=== PATIENT | male | born 1950 | race Caucasian/White ===

== ENCOUNTER 2021-09-06 15:11 | Inpatient (IN) | payer MEDICARE, SELFPAY ==
--- NOTE | ~2021-09-06 | MR_ITS ---
EXAMINATION: MR MRCP wo/w con/w 3D wo ind DATE: 09/07/2021 08:40 INDICATION: Acute pancreatitis. Right upper quadrant abdominal pain. TECHNIQUE: Magnetic resonance imaging (MRI) of the abdomen was performed without and with 15 mL Multi Marisabel intravenous contrast. Sequences included coronal T2-weighted FS FSE, coronal T2-weighted FSE, a xial T1-weighted LAVA, coronal FS FIESTA, axial dual-echo T1-weighted SPGR, coronal lava-FLEX, sagitt al T2-weighted FSE, axial T2-weighted FSE, and axial DWI. Thick-slab T2-weighted FSE images were obta ined for magnetic resonance cholangiopancreatography (MRCP). Maximum intensity projection 3-D reconst ructions of the volumetric data were created by the technologist. Postcontrast sequences included cor onal LAVA-flex and time course of axial T1-weighted LAVA. COMPARISON: CT abdomen and pelvis 09/06/2021, abdomen ultrasound 09/06/2021 FINDINGS: ABDOMEN MRI: There is a small right pleural effusion. The liver is normal. The gallbladder is distend ed and contains sludge. Gallbladder wall thickening is noted. There is sludge in the cystic duct that protrudes into the common duct. The spleen is normal. There is edema around the pancreas, consistent with acute interstitial pancreatitis. The adrenal glands and right kidney are normal. There are laurita pelvic cysts in left kidney measuring up to 14 mm. There are no dilated loops of bowel. There is a sm all volume of perihepatic and perisplenic ascites. There are no pathologically enlarged lymph nodes. ABDOMEN MRCP: The common duct is normal in caliber and measures 6 mm. No stone in the distal common b ile duct. IMPRESSION: 1. Acute interstitial pancreatitis. Sludge protrudes into the common duct from the cystic duct, but t here is no stone in the distal common bile duct. 2. Acute cholecystitis. 3. Small volume of ascites. 4. Small right pleural effusion. Reviewed, dictated and finalized at location A. IMPRESSION: 1. Acute interstitial pancreatitis. Sludge protrudes into the common duct from the cystic duct, but there is no stone in the distal common bile duct. 2. Acute cholecystitis. 3. Small volume of ascites. 4. Small right pleural effusion.
--- NOTE | ~2021-09-06 | XR_ITS ---
EXAMINATION: XR ERCP DATE: 09/08/2021 15:37 INDICATION: Acute pancreatitis TECHNIQUE: Two intraoperative fluoroscopic images obtained during endoscopic retrograde cholangiopanc reatography (ERCP) are submitted for review. Total fluoroscopic time was 155.8 seconds. COMPARISON: MRI from yesterday and CT from 09/06/2021 FINDINGS: Fluoroscopic images demonstrate retrograde opacification of a normal caliber common bile du ct. IMPRESSION: 1. Please refer to the ERCP procedure note for additional details. Reviewed, dictated and finalized at location A.
--- NOTE | ~2021-09-06 | CT_ITS ---
EXAMINATION: CT abdomen pelvis w con INDICATION: Epigastric abdominal pain TECHNIQUE: Computed tomographic images of the abdomen and pelvis were obtained after the administrati on of 100 cc of Omnipaque 350 intravenous contrast. The dose-length product (DLP) was 476.87 mGy-cm. Automated exposure control and iterative reconstruction technique were employed. COMPARISON: None available FINDINGS: Minimal dependent atelectasis is present in the lung bases. The heart size is normal. Calci fied coronary artery atherosclerosis is noted. There is a small sliding hiatal hernia. The liver, spl een, pancreas, and adrenal glands are normal. The gallbladder is distended. There is mild intrahepati c biliary dilatation. There is fat stranding near the gallbladder. The kidneys are unremarkable. Ther e is calcified atherosclerosis of the aorta and many of the other arteries. No pathologically enlarge d abdominal or pelvic lymph nodes are identified. There is no free intraperitoneal gas or evidence of bowel obstruction. Colonic diverticulosis is present without evidence of diverticulitis. There is mi ld lumbar spondylosis. IMPRESSION: 1. Findings consistent with acute cholecystitis. Reviewed, dictated and finalized at location A.
--- NOTE | ~2021-09-06 | US_ITS ---
EXAMINATION: US abdomen limited DATE: 09/06/2021 18:20 INDICATION: Abdominal pain TECHNIQUE: Multiple grayscale and Doppler ultrasound images of the abdomen were obtained. COMPARISON: None available FINDINGS: The head and body of the pancreas are normal. The pancreatic tail is obscured by bowel gas. The liver is normal with normal echogenicity and echotexture. No surface nodularity. Normal hepatope mj flow in the main portal vein. The gallbladder is normal with no abnormal wall thickening, pericho lecystic fluid or stones. The normal common bile duct measures 6 mm. There was no sonographic Maynard sign. IMPRESSION: 1. Normal sonographic study of the gallbladder. Reviewed, dictated and finalized at location A.
[2021-09-06 15:43] VITALS: BP 123/80; PULSE 102; RESP 16; TEMP 37.1; O2SAT 97
[2021-09-06 16:05] LABS: Hematocrit 39.8 % (42.0-52.0); Hemoglobin 14.3 g/dL (14.0-18.0); Mean Corpuscular HGB Conc 35.9 g/dl (32-36); Mean Corpuscular Hemoglobin 34.3 pg (26-34); Mean Corpuscular Volume 95.4 fl (80-100); Mean Platelet Volume 8.2 fl (7.4-10.4); Platelet Count Result 165 k/mm3 (150-375); Red Blood Count 4.17 M/mm3 (4.6-6.20); White Blood Count 13.2 K/mm3 (4.5-10.0)
[2021-09-06 16:22] LABS: Alanine Aminotransferase 30 U/L (4-50); Albumin Level 4.3 g/dL (3.5-5.1); Alkaline Phosphatase 100 U/L (38-126); Anion Gap 11 mmol/L (8-16); Aspartate Amino Transferase 63 U/L (17-59); Blood Urea Nitrogen 17 mg/dL (9-20); Calcium 9.8 mg/dL (8.4-10.2); Carbon Dioxide 27 mmol/L (22-30); Chloride 103 mmol/L (98-107); Estimated CRCL calculation 74 ml/min; Estimated Glomerular Filt Rate > 60; Glucose 135 mg/dL (65-110); Lipase 1324 U/L (23-300); Potassium 3.5 mmol/L (3.4-5.0); Sodium 141 mmol/L (137-145)
[2021-09-06 16:40] LABS: Band Neutrophils Percent 7 % (0-6); Lymphocytes Absolute Manual 0.26 K/mm3 (1.1-4.5); Monocytes Absolute Manual 0.79 K/mm3 (0.1-0.90); Monocytes Percent Manual 6 % (3-9); Neutrophils Absolute Manual 12.14 K/mm3 (1.3-6.7); Neutrophils Percent Manual 85 % (46-73); Total Cells Counted 100
[2021-09-06 16:41] LABS: Platelet Estimate Adequate (Adequate)
[2021-09-06 17:14] VITALS: BP 132/67; PULSE 49; RESP 18; TEMP 36.6; O2SAT 99
[2021-09-06 17:25] LABS: Add Urine Microscopic? YES; Appearance Urine Cloudy (Clear); Bacteria Urine Trace /hpf; Bilirubin Urine Negative (Negative); Blood Urine Negative (Negative); Color Urine Yellow (Yellow); Glucose Urine UA Negative (Negative); Ketones Urine Negative (Negative); Leukocyte Esterase Ur Negative LEU/UL (Negative); Mucus Urine Rare /lpf; Nitrate Urine Negative (Negative); Protein Urine Negative (Negative); RBC Urine 0-2 /hpf (0-2); Specific Grav Ur 1.018 (1.001-1.035); Urobilinogen Urine Negative mg/dL (<2.0); WBC Urine 0-3 /hpf
--- NOTE | 2021-09-06 17:34 | ED.GENADULT ---
HPI - General Adult General Chief complaint: Abdominal Pain Stated complaint: abd pain Time Seen by Provider: 09/06/21 17:25 Source: patient Mode of arrival: ambulatory Limitations: no limitations History of Present Illness HPI narrative: The patient is a 70 yo male with a history of prostate cancer, HTN, HLD, presenting for evaluation of abdominal pain. Pain awakened him from sleep early this morning. Pain is in left middle abdomen, severe in nature, rated as 7/10. Pt with associated nausea. He denies fever, chills. No diarrhea or constipation. No chest pain or dyspnea. No recent falls or significant trauma. Patient denies radiation of the pain to the back or flanks. No associated dyspnea, cough. Patient denies recent food indiscretions but patient drinks 3-4 bottles of wine weekly. Patient reports history of anxiety. He denies current chest pain, or back pain. No diaphoresis. No jaw pain or neck pain. Related Data Allergies Allergy/AdvReac Type Severity Reaction Status Date / Time codeine Allergy Mild Rash Verified 09/06/21 17:20 Review of Systems Review of Systems: CONSTITUTIONAL: Denies fever, chills, or sweats. EYES: Denies visual changes, redness, or discharge. ENT: Denies rhinorrhea, congestion, sore throat, or otalgia. CARDIOVASCULAR: Denies current chest pain, palpitations, or edema. RESPIRATORY: Denies cough or dyspnea. GASTROINTESTINAL: Reports abdominal pain, nausea without vomiting GENITOURINARY: Denies dysuria or hematuria. SKIN: Denies rash or itching. MUSCULOSKELETAL: Denies back pain, joint pain, or myalgia. NEUROLOGIC: Denies headache, numbness, or weakness. [facility] Social History Social History (Updated 09/06/21 @ 17:59 by Nell Weinstein MD) Smoking status: Former smoker Alcohol intake: current Alcohol use details: 3-4 bottles of wine weekly Substance use: never Gender identity (if verbalized by the patient): Male Exam Narrative: GENERAL: Awake, alert, conversant HEAD: Normocephalic, atraumatic. EYES: PERRLA and EOMI. ENT: Nares clear, no rhinorrhea or epistaxis. Mucous membranes moist. NECK: Supple. CHEST: No respiratory distress, breathing even and non labored HEART: Regular rate, sinus rhythm ABDOMEN:Non distended, non tender on exam, no epigastric or RUQ tenderness, (-) maynard sign EXTREMITIES: Normal range of motion. No edema. SKIN: Warm, dry, no rash. NEURO:No focal deficits. Alert and oriented x3 Course Vital Signs Vital signs: Vital Signs Temperature 37.1 C 09/06/21 15:43 Pulse Rate 102 H 09/06/21 15:43 Respiratory Rate 16 09/06/21 15:43 Blood Pressure 123/80 09/06/21 15:43 Pulse Oximetry 97 09/06/21 15:43 Temperature 36.6 C 09/06/21 17:14 Pulse Rate 98 09/06/21 20:44 Respiratory Rate 15 09/06/21 20:44 Blood Pressure 142/77 H 09/06/21 20:44 Pulse Oximetry 97 09/06/21 20:44 Medical Decision Making MDM Narrative Medical decision making narrative: Patient presenting for evaluation of abdominal pain. At the time of assessment, ABCs are intact and vital signs are notable for mild tachycardia. Patient has no fever. Not hypotensive. IV access obtained and labs are drawn. Patient was given IV fluids, antiemetic and pain medication. Physical exam does not elicit much tenderness at all. No right upper quadrant tenderness, negative Maynard sign. Laboratory results show hyperbilirubinemia, elevation in AST consistent with the patient's recent alcohol use. Patient with elevation in lipase, consistent with pancreatitis. Right upper quadrant ultrasound was obtained and is negative. Given the patient's pain and history, wanted to ensure no hemorrhagic pancreatitis, pseudocyst, thus CT abdomen/pelvis was obtained and is concerning for acute cholecystitis. Conflicting imaging studies, but patient does not have RUQ abdominal pain on exam, - Maynard sign. Clinically this seems more consistent with alcoholic pancreatitis. Patient will be continued
[2021-09-06 19:16] VITALS: BP 155/66; PULSE 102; RESP 15; O2SAT 98
--- NOTE | 2021-09-06 19:42 | PC.NURSE ---
Pt to CT scan via stretcher.
[2021-09-06 20:44] VITALS: BP 142/77; PULSE 98; RESP 15; O2SAT 97
--- NOTE | 2021-09-06 21:13 | ECG_ITS ---
Measurements Intervals [place] Rate: 103 P: -44 [place]: 180 QRS: -32 QRSD: 100 T: 13 QT: 348 QTc: 458 Interpretive Statements SINUS TACHYCARDIA ATRIAL COUPLET AND ATRIAL PREMATURE COMPLEX LEFT AXIS DEVIATION INCOMPLETE RIGHT BUNDLE BRANCH BLOCK BORDERLINE R WAVE PROGRESSION, ANTERIOR LEADS BORDERLINE T WAVE ABNORMALITY- ANT/INF LEADS BASELINE ARTIFACT- I, II, III, AVR, AVL, AVF, V1-V3 ABNORMAL ECG Electronically Signed On 09-07-2021 6:25:42 CDT by Ashutosh Elena D.O.
[2021-09-06 21:53] LABS: Lactic Acid Reflex 1.6 mmol/L (0.7-2.1)
--- NOTE | 2021-09-06 22:09 | PM.IMHP ---
H&P: HPI History of Present Illness Date/Time: 09/06/21 22:09 Chief Complaint: Abdominal pain Narrative: The patient is a 70 yo male with a history of prostate cancer, HTN, HLD, presents to the ER with upper abdominal pain that awakened him from sleep earlier this morning. The pain is in the right upper quadrant and epigastric area severe in nature 7 to 8/10 in intensity associated with nausea and dry his but no vomiting. He denies any fever or chills no diarrhea or constipation. He never had similar kind of pain in the past. He does endorse alcohol use on a regular basis and particularly drinks wine and he did drink wine earlier that night. In the ED evaluation he was noted to have mild leukocytosis of 13,000 along with elevated lipase at 1:24 p.m. he did have bilirubin elevation at 2 with mild AST of 63 however alkaline phosphatase and ALT was within normal limit. He was evaluated with a right upper quadrant ultrasound which was unremarkable per Radiology review. Abdominal pelvis CT scan was done which showed features of acute cholecystitis. He is admitted for further evaluation and management. Review of Systems Review of Systems: - CONSTITUTIONAL: Denies weight loss, fever and chills. - HEENT: Denies changes in vision and hearing - RESPIRATORY: Denies SOB and cough. - CV: Denies palpitations and CP. - GI: Reports abdominal pain, nausea, denies vomiting and diarrhea. - : Denies dysuria and urinary frequency. - MSK: Denies myalgia and joint pain. - SKIN: Denies rash and pruritus. - NEUROLOGICAL: Denies headache and syncope. - PSYCHIATRIC: Denies recent changes in mood. Denies anxiety and depression. All systems reviewed & are unremarkable except as noted in HPI and below Constitutional: Constitutional: Reports fatigue and Reports weakness Neurologic: Reports weakness Endocrine: Endocrine: Reports fatigue [facility] Social History Social History (Updated 09/06/21 @ 17:59 by Nell Weinstein MD) Smoking status: Former smoker Alcohol intake: current Drinks per week: 21 Alcohol use details: 3-4 bottles of wine weekly Substance use: never Gender identity (if verbalized by the patient): Male Spiritual care concerns: No Meds Home Medications and Allergies Home Medications Medication Instructions Recorded Confirmed Type amlodipine 5 mg PO DAILY 09/06/21 09/06/21 History azelastine 2 spray INTRANASAL DAILY 09/06/21 09/06/21 History fluticasone propionate 2 spray INTRANASAL DAILY 09/06/21 09/06/21 History losartan-hydrochlorothiazide 1 tablet PO DAILY 09/06/21 09/06/21 History metronidazole 1 applic TOPICAL BID 09/06/21 09/06/21 History montelukast 10 mg PO HS 09/06/21 09/06/21 History rosuvastatin 10 mg PO HS 09/06/21 09/06/21 History sertraline 100 mg PO HS 09/06/21 09/06/21 History zolpidem 10 mg PO HS 09/06/21 09/06/21 History Allergies Allergy/AdvReac Type Severity Reaction Status Date / Time codeine Allergy Mild Rash Verified 09/06/21 17:20 Vital Signs Vital Signs - 24 hr 09/06/21 15:43 09/06/21 17:14 09/06/21 19:16 Temperature 98.7 F 97.8 F Pulse Rate 102 H 49 L 102 H Respiratory Rate 16 18 15 Blood Pressure 123/80 132/67 155/66 H Pulse Oximetry 97 99 98 09/06/21 20:44 Temperature Pulse Rate 98 Respiratory Rate 15 Blood Pressure 142/77 H Pulse Oximetry 97 Exam Narrative: GENERAL: Awake, alert, conversant HEAD: Normocephalic, atraumatic. EYES: PERRLA and EOMI. ENT: Nares clear, no rhinorrhea or epistaxis. Mucous membranes moist. NECK: Supple. CHEST: No respiratory distress, breathing even and non labored HEART: Regular rate, sinus rhythm ABDOMEN:Non distended, non tender on exam, no epigastric or RUQ tenderness, (-) murrell sign EXTREMITIES: Normal range of motion. No edema. SKIN: Warm, dry, no rash. NEURO:No focal deficits. Alert and oriented x3 H&P: Results Labs Labs: Short CBC 09/06/21 Range/Units 15:51 WBC 13.2 H (4.5-10.0) K/
--- NOTE | 2021-09-06 22:16 | ADMGEN ---
This patient, Rickey Weiss, was admitted to Medical Room 251-. Patient/family oriented to hospital policies and general routines including ID bracelet, bed and alarms, visiting hours, pain management, procedures, bathroom and other care routines, personal items, smoking policy, room service/diet, and visiting hours. Information on how to activate the Rapid Response Team has been discussed. Patient/Family are encouraged to report perceived risks to care and to ask questions if they do not understand what they are told or what they should do.
[2021-09-06 22:19] VITALS: BP 134/87; PULSE 91; RESP 16; O2SAT 98
[2021-09-06 22:39] VITALS: BP 133/76; PULSE 99; RESP 18; TEMP 37; O2SAT 98
[2021-09-06 22:46] VITALS: BMI 24.7
[2021-09-06] MEDS: SODIUM CHLORIDE 0.9% IV 1,000 ML 125 ML IV CONT (23:07)
[2021-09-06] MEDS: MORPHINE SULFATE (*CRX) 4 MG/ML INJ IV PUSH (23:16)
[2021-09-06] MEDS: ONDANSETRON INJ 4 MG/2 ML VIAL IV PUSH (23:21)
[2021-09-07 04:32] VITALS: BP 122/65; PULSE 87; RESP 16; TEMP 37.1; O2SAT 92
[2021-09-07 05:36] LABS: Basophils Percent Auto 0.3 % (0.2-1.2); Eosinophils Percent Auto 0.1 % (0-4.4); Immature Granulocyte Absolute 0.05 K/mm3 (0.00-0.031); Immature Granulocyte Percent A 0.5 % (0-0.5); Lymphocytes Percent Auto 2.9 % (18.3-44.2); Mean Corpuscular HGB Conc 35.1 g/dl (32-36); Mean Corpuscular Hemoglobin 34.7 pg (26-34); Mean Corpuscular Volume 98.7 fl (80-100); Mean Platelet Volume 8.6 fl (7.4-10.4); Monocytes Absolute Auto 0.9 K/mm3 (0.1-0.6); Monocytes Percent Auto 8.7 % (2.6-8.5); Neutrophils Absolute Auto 9.2 K/mm3 (1.3-6.7); Neutrophils Percent Auto 87.5 % (45.5-73.1); Platelet Count Result 139 k/mm3 (150-375); Red Blood Count 3.75 M/mm3 (4.6-6.20); Red Cell Distribution Width 13.2 % (11.5-14.5); White Blood Count 10.5 K/mm3 (4.5-10.0)
[2021-09-07 05:52] LABS: Albumin Level 3.5 g/dL (3.5-5.1); Alkaline Phosphatase 165 U/L (38-126); Anion Gap 7 mmol/L (8-16); Bilirubin,Total 5.8 mg/dL (0.2-1.3); Blood Urea Nitrogen 17 mg/dL (9-20); Calcium 8.8 mg/dL (8.4-10.2); Carbon Dioxide 27 mmol/L (22-30); Chloride 106 mmol/L (98-107); Estimated CRCL calculation 59 ml/min; Estimated Glomerular Filt Rate > 60; Glucose 130 mg/dL (65-110); Potassium 3.3 mmol/L (3.4-5.0); Sodium 140 mmol/L (137-145)
[2021-09-07 06:09] LABS: Alanine Aminotransferase 828 U/L (4-50); Aspartate Amino Transferase 928 U/L (17-59)
[2021-09-07] MEDS: SODIUM CHLORIDE 0.9% IV 1,000 ML 125 ML IV CONT (06:49)
[2021-09-07 06:50] LABS: Lipase 10962 U/L (23-300)
[2021-09-07] MEDS: FLUTICASONE PROPIONATE 0.05% NA SPR 16 GM BTL (*BKC) 2 SPRAY NASAL (08:46)
[2021-09-07] MEDS: amLODIPine BESYLATE 5 MG TABLET PO (08:46)
[2021-09-07] MEDS: AZELASTINE HCL NASAL 0.1% 137 MCG/SPR 30 ML BTL 2 SPRAY NASAL (08:46)
[2021-09-07] MEDS: POTASSIUM CHLORIDE 20 MEQ TABLET 40 MEQ PO (08:52)
--- NOTE | 2021-09-07 09:34 | PM.CNGS ---
Assessment and Plan Assessment and plan (1) Acute pancreatitis: Code(s): K85.90 - Acute pancreatitis without necrosis or infection, unspecified Status: Acute Assessment and Plan: Presented with acute biliary versus alcoholic pancreatitis. Lipase and LFTs went up this morning. Patient's abdominal pain has improved. MRCP showed biliary sludge protruding through the cystic duct into the common bile duct. GI has been consulted, will await their recommendations. Continue to treat the pancreatitis with IV fluids, analgesics, and bowel rest. His pain is already improving. Since this appears to be more likely acute biliary pancreatitis, he will likely need a cholecystectomy at some point once his pancreatitis has improved. Will allow GI to see and we will continue to follow along to decipher timing of surgery depending on how the patient progresses. Labs are already ordered for tomorrow morning. Thank you for allowing us to see the patient in consultation. (2) Biliary sludge: Code(s): K83.8 - Other specified diseases of biliary tract Status: Acute Assessment and Plan: Sludge noted on the MRCP protruding into the common bile duct from the cystic duct. See plan above. (3) Hypertension: Code(s): I10 - Essential (primary) hypertension Status: Chronic (4) Alcohol abuse: Code(s): F10.10 - Alcohol abuse, uncomplicated Status: Chronic Assessment and Plan: Discussed the importance of limiting alcohol use. (5) History of prostate cancer: Code(s): Z85.46 - Personal history of malignant neoplasm of prostate Status: Inactive Assessment and Plan: Diagnosed in July of 2020 and underwent a radical prostatectomy in December. Recently finished radiation treatment in early July and is on androgen deprivation therapy. Additional Plan I have discussed the patient's case and plan of care with Dr. López. History of Present Illness Consult details Consult date: 09/07/21 Reason for consult: other (Pancreatitis and CT findings suggesting cholecystitis with elevated LFTs) Requesting physician: Nell Weinstein MD Narrative: This is a 70-year-old male with a history of prostate cancer, hypertension, and alcohol abuse, who presented to the emergency department with complaints of upper abdominal pain yesterday. He reports typically drinking about 1 bottle of wine per day, and 2 days ago he had 2 glasses of wine with a cheeseburger and fries for dinner. He went to bed feeling well. Then, around 3:00 a.m. yesterday morning he awoke in his sleep due to severe upper abdominal pain. He reports this pain was radiating across his entire abdomen above his umbilicus. He has never had this pain in the past. No history of pancreatitis or known gallstones. He developed nausea and was dry heaving at home. The pain continued throughout the day, and his daughter urged him to go to the ER for evaluation. A right upper quadrant ultrasound in the ER was normal with no gallstones or common bile duct dilatation. Labs showed a white blood cell count of 13,200, lipase of 1,324, total bilirubin 2, AST 63, ALT 30, and alk-phos 100. CT scan of the abdomen and pelvis was ordered and showed intrahepatic ductal dilatation, gallbladder distention, and some fat stranding near the gallbladder. Pancreas appeared normal. The patient was admitted to the hospitalist service and our service was consulted for the abnormalities of the gallbladder seen on the CT scan. Labs were repeated this morning and his white blood cell count came down to 10,500, but his lipase went up to 10,962 and LFTs went up with a total bilirubin of 5.8, AST 928, ALT 28, and alk-phos 165. An MRCP was ordered this morning, which showed acute interstitial pancreatitis with sludge protruding into the common bile duct from the cystic duct, but no definitive stones in the distal common bile duct. The gallbladder again is noted to be distended w
[2021-09-07 14:00] VITALS: BP 108/62; PULSE 72; RESP 18; TEMP 37.3; O2SAT 97
--- NOTE | 2021-09-07 14:29 | PM.IMPN ---
Progress Note: A&P Assessment and Plan (1) Acute alcoholic pancreatitis: Code(s): K85.20 - Alcohol induced acute pancreatitis without necrosis or infection Status: Suspected (2) Alcohol abuse: Code(s): F10.10 - Alcohol abuse, uncomplicated Status: Chronic (3) Hyperlipidemia: Code(s): E78.5 - Hyperlipidemia, unspecified Status: Chronic (4) Hypertension: Code(s): I10 - Essential (primary) hypertension Status: Chronic (5) Acute cholecystitis: Code(s): K81.0 - Acute cholecystitis Status: Ruled-out Additional Plan # Acute pancreatitis likely as a result of biliary sludge versus alcohol-induced. Continue IV fluids. Will keep him NPO for now. MRCP showing biliary sludge protruding from the cystic duct into the common bile duct but no stone in the distal common bile duct. GI consult recommendations are pending. He will likely need ERCP at some point. Surgery service recommendations appreciated. Serum lipase bilirubin and ALT went up significantly. Will continue to monitor. Will deescalate pain medication and change morphine every 2-4 hours. Continue to deescalate based on his pain control and other symptoms. # acute cholecystitis IV Zosyn NPO IV fluids IV analgesics IV emetics. Surgery consult recommendations appreciated. He will likely need cholecystectomy at some point once recovers from this acute event. # history of prostate cancer status post prostatectomy and radiation treatment currently on androgen deprivation therapy # alcohol abuse advised to cut back and stop it altogether. Continue to monitor him for any alcohol withdrawal sign. Thiamine and folate. CIWA protocol if he starts exhibiting signs for alcohol withdrawal. # hypertension continue amlodipine. # hyperlipidemia . Will hold Crestor because of acute pancreatitis and hepatitis. # chronic allergies # DVT prophylaxis SCD # full code status Subjective Date/time seen: 09/07/21 14:29 He thinks that his pain has improved significantly. He still have some tenderness in the right upper quadrant area. He denied have any nausea vomiting or diarrhea. Lipase has trended up significantly. His bilirubin alkaline phosphatase and ALT has trended up as well. MRCP shows acute cholecystitis/acute pancreatitis and biliary sludge protruding from cystic duct to common bile duct with no stone. Review of Systems Review of Systems: All systems reviewed & are unremarkable except as noted in HPI and below Exam Narrative: GENERAL: Awake, alert, conversant NECK: Supple. CHEST: No respiratory distress, breathing even and non labored HEART: Regular rate, sinus rhythm ABDOMEN:Non distended, non tender on exam, no epigastric or RUQ tenderness EXTREMITIES: No edema NEURO:No focal deficits. Alert and oriented x3 Objective Data Vital Signs Vital Signs: Vital Signs - 24 hr 09/06/21 15:43 09/06/21 17:14 09/06/21 19:16 Temperature 37.1 C 36.6 C Pulse Rate 102 H 49 L 102 H Respiratory Rate 16 18 15 Blood Pressure 123/80 132/67 155/66 H Pulse Oximetry 97 99 98 09/06/21 20:44 09/06/21 22:19 09/06/21 22:39 Temperature 37.0 C Pulse Rate 98 91 99 Respiratory Rate 15 16 18 Blood Pressure 142/77 H 134/87 133/76 Pulse Oximetry 97 98 98 09/07/21 04:32 Temperature 37.1 C Pulse Rate 87 Respiratory Rate 16 Blood Pressure 122/65 Pulse Oximetry 92 Intake/Output Intake/Output: Intake & Output 09/04/21 09/05/21 09/06/21 09/07/21 23:59 23:59 23:59 23:59 Intake Total 50 1050 Output Total 750 Balance 50 300 Meds/Results Medications: Active Medications Generic Name Dose Route Start Last Admin Trade Name Freq PRN Reason Stop Dose Admin Amlodipine Besylate 5 mg 09/07/21 09:00 09/07/21 08:46 Amlodipine Besylate 5 Mg Tablet PO 5 mg DAILY MILADYS Administration Azelastine HCl 2 spray 09/07/21 09:00 09/07/21 08:46 Azelastine Hcl Nasal 0.1% 137 Mcg/Spr 30 Ml Btl NASAL
--- NOTE | 2021-09-07 16:15 | WPDGICN ---
Assessment and Plan Assessment and plan (1) Acute pancreatitis: Code(s): K85.90 - Acute pancreatitis without necrosis or infection, unspecified Status: Acute Assessment and Plan: noted acute cholecystitis and pancreatitis but also sludge protruding into the common duct from the cystic duct, I am afraid that with raising liver enzymes and worsening jaundice may need ERCP tomorrow to assess bile duct and sweeping- MRCP no definitive stones. continue with npo and medical management also will need cholecystectomy- timing by surgery continue with abx (2) Biliary sludge: Code(s): K83.8 - Other specified diseases of biliary tract Status: Acute Assessment and Plan: surgery on board monitor liver enzymes (3) Elevated liver enzymes: Code(s): R74.8 - Abnormal levels of other serum enzymes Status: Acute (4) Nausea: Code(s): R11.0 - Nausea Status: Acute (5) History of prostate cancer: Code(s): Z85.46 - Personal history of malignant neoplasm of prostate Status: Acute GI Consult Note Consult date/time: 09/07/21 16:15 Reason for consult: sludge in bile duct, cholecystitis, elevated liver enzymes HPI: Rickey Weiss is a 70 year old male history of prostate cancer currently undergoing treatment, hypertension, and alcohol abuse (slowed down after diagnosis of prostate cancer earlier this year) who came to the emergency department with new onset of upper abdominal pain that started yesterday in right upper abdomen radiating across, also nausea with dry heaving. Pain intensified and got severe. Labs showed a white blood cell count of 13,200, lipase of 1,324, total bilirubin 2, AST 63, ALT 30, and alk-phos 100 (today bili up to 5, transaminases 900's). CT scan of the abdomen and pelvis reviewed and showed intrahepatic ductal dilatation, gallbladder distention, and some fat stranding near the gallbladder. Today lipase went up to 10,962. Finally had MRCP which showed acute interstitial pancreatitis with sludge protruding into the common bile duct from the cystic duct, but no definitive stones in the distal common bile duct. The gallbladder again is noted to be distended with some wall thickening and containing sludge. Started on antibiotics and evaluated by surgery. Denies h/o pancreatitis. Review of Systems Constitutional: Constitutional: Denies headache(s) and Denies weakness Eyes: Eyes: Denies blurry vision ENT: Reports Normal hearing present, Denies headache(s) and Denies neck pain Cardiovascular: Cardiovascular: Denies chest pain and Denies dyspnea Respiratory: Respiratory: Denies dyspnea Gastrointestinal: Gastrointestinal: Reports abdominal pain and Reports nausea Genitourinary: Genitourinary: Denies dysuria Musculoskeletal: Musculoskeletal: Denies neck pain Integumentary/Breasts: Skin/Breast: Denies dry skin Neurologic: Reports Normal hearing present, Denies headache(s) and Denies weakness Psychiatric: Psychiatric: Denies anxiety Endocrine: Endocrine: Denies change in body appearance Hematologic/Lymphatic: Hematologic/Lymphatic: Denies easy bleeding Allergic/Immunologic: Allergic/Immunologic: Denies urticaria PMFSH Past Medical History Medical History (Updated 09/07/21 @ 16:21 by Darrick Bourgeois MD) Elevated liver enzymes History of prostate cancer History of radiation therapy Hyperlipidemia Hypertension Nausea Surgical History Surgical History History of radical prostatectomy History of vasectomy Family History Family History Other No pertinent family history Social History Social History Social History: The patient lives in an apartment alone. He is . His 11 years ago from ovarian cancer. He has two children. Prior to being diagnosed with pr
[2021-09-07] MEDS: SODIUM CHLORIDE 0.9% IV 1,000 ML 150 ML IV CONT ×2 (17:47→23:57)
[2021-09-07 19:46] VITALS: BP 119/61; PULSE 74; RESP 16; TEMP 36.5; O2SAT 95
[2021-09-07] MEDS: MONTELUKAST SODIUM 10 MG TABLET PO (20:23)
[2021-09-07] MEDS: SERTRALINE HCL 50 MG TABLET 100 MG PO (20:24)
[2021-09-07] MEDS: ZOLPIDEM TARTRATE (*CRX) 5 MG TABLET 10 MG PO (20:24)
[2021-09-08] VITALS (10 sets, daily range): BP systolic 110–143; BP diastolic 53–83; PULSE 67–80; RESP 16–20; TEMP 36.1–37.1; O2SAT 94–100
[2021-09-08 05:41] LABS: Basophils Percent Auto 0.3 % (0.2-1.2); Eosinophils Absolute Auto 0.1 K/mm3 (0-0.3); Eosinophils Percent Auto 1.4 % (0-4.4); Hematocrit 35.9 % (42.0-52.0); Hemoglobin 12.4 g/dL (14.0-18.0); Immature Granulocyte Absolute 0.03 K/mm3 (0.00-0.031); Immature Granulocyte Percent A 0.4 % (0-0.5); Lymphocytes Percent Auto 4.1 % (18.3-44.2); Mean Corpuscular HGB Conc 34.5 g/dl (32-36); Mean Corpuscular Hemoglobin 34.3 pg (26-34); Mean Corpuscular Volume 99.4 fl (80-100); Mean Platelet Volume 8.6 fl (7.4-10.4); Monocytes Absolute Auto 0.6 K/mm3 (0.1-0.6); Monocytes Percent Auto 7.6 % (2.6-8.5); Neutrophils Absolute Auto 6.4 K/mm3 (1.3-6.7); Neutrophils Percent Auto 86.2 % (45.5-73.1); Platelet Count Result 127 k/mm3 (150-375); Red Blood Count 3.61 M/mm3 (4.6-6.20); White Blood Count 7.4 K/mm3 (4.5-10.0)
[2021-09-08 06:28] LABS: Alanine Aminotransferase 453 U/L (4-50); Albumin Level 3.3 g/dL (3.5-5.1); Alkaline Phosphatase 158 U/L (38-126); Anion Gap 4 mmol/L (8-16); Aspartate Amino Transferase 225 U/L (17-59); Bilirubin,Total 5.2 mg/dL (0.2-1.3); Blood Urea Nitrogen 15 mg/dL (9-20); Calcium 8.7 mg/dL (8.4-10.2); Carbon Dioxide 27 mmol/L (22-30); Chloride 109 mmol/L (98-107); Estimated CRCL calculation 65 ml/min; Estimated Glomerular Filt Rate > 60; Glucose 96 mg/dL (65-110); Potassium 3.5 mmol/L (3.4-5.0); Sodium 140 mmol/L (137-145)
[2021-09-08 06:29] LABS: Lipase 3479 U/L (23-300)
[2021-09-08] MEDS: SODIUM CHLORIDE 0.9% IV 1,000 ML 150 ML IV CONT (07:07)
[2021-09-08] MEDS: DEXTROSE 5%/0.45% SOD CHL 1,000 ML 75 ML IV CONT (07:50)
--- NOTE | 2021-09-08 08:56 | PM.PNGS ---
Progress Note: A&P Assessment and Plan (1) Acute biliary pancreatitis without infection or necrosis: Code(s): K85.10 - Biliary acute pancreatitis without necrosis or infection Status: Acute Assessment and Plan: improving. Patient to have ERCP today. Postprocedure diet per Dr. Lake. From my perspective, patient may be discharged this weekend. I discussed the procedure of laparoscopic cholecystectomy with the patient. The procedure the risks the benefits, the usual recovery and the fact that it is done as an outpatient were all discussed. He has had laparoscopic surgery for prostatectomy. All questions were answered. He agrees to proceed. This can be done electively as an outpatient. My office will call him to schedule should he be discharged this weekend. Subjective Subjective Date/Time Seen: 09/08/21 08:56 Patient reports: no new complaints, feels better, pain is less and afebrile Interval history: Patient tolerated clear liquids last night without recurrence of pain. He is scheduled for ERCP today. Review of Systems Review of Systems: All systems reviewed & are unremarkable except as noted in HPI and below Constitutional: Constitutional: Denies chills, Denies fever(s) and Denies headache(s) Cardiovascular: Cardiovascular: Denies chest pain and Denies dyspnea Respiratory: Respiratory: Denies cough and Denies dyspnea Gastrointestinal: Gastrointestinal: Reports as per HPI, Reports abdominal pain ( Minimal, much improved), Denies heartburn, Denies nausea and Denies vomiting Neurologic: Denies confusion and Denies headache(s) Exam Const: General: comfortable and no acute distress; No confusion Orientation/consciousness: patient oriented x3 and No confusion GI: Inspection: non-distended, scaphoid and no visible herniation GI Palp: Yes Soft to palpation, Yes Tenderness to palpation present (GI) ( very mild epigastric tenderness), No Guarding due to palpation present (GI), No Hernia present and No Rebound tenderness present Auscultation: Hypoactive bowel sounds present Extrem: General: no calf tenderness and no edema Psych: Affect: normal affect Insight: Good insight present (Psych) Judgement: Good judgement present (Psych) Objective Data Vital Signs Vital Signs: Vital Signs - 24 hr 09/07/21 14:00 09/07/21 19:46 09/08/21 04:42 Temperature 37.3 C 36.5 C 36.8 C Pulse Rate 72 74 80 Respiratory Rate 18 16 16 Blood Pressure 108/62 119/61 114/64 Pulse Oximetry 97 95 94 Intake/Output Intake/Output: Intake & Output 09/05/21 09/06/21 09/07/21 09/08/21 23:59 23:59 23:59 23:59 Intake Total 50 4010 1350 Output Total 1100 450 Balance 50 2910 900 Meds/Results Medications: Active Medications Generic Name Dose Route Start Last Admin Trade Name Freq PRN Reason Stop Dose Admin Amlodipine Besylate 5 mg 09/07/21 09:00 09/07/21 08:46 Amlodipine Besylate 5 Mg Tablet PO 5 mg DAILY MILADYS Administration Azelastine HCl 2 spray 09/07/21 09:00 09/07/21 08:46 Azelastine Hcl Nasal 0.1% 137 Mcg/Spr 30 Ml Btl NASAL 2 spray DAILY MILADYS Administration Fluticasone Propionate 2 spray 09/07/21 09:00 09/07/21 08:46 Fluticasone Propionate 0.05% Na Spr 16 Gm Btl (*Bkc) NASAL 2 spray DAILY MILADYS Administration Piperacillin/Tazobactam/Dextrose 3.375 gm in 50 mls @ 100 mls/hr 09/07/21 07:25 09/08/21 06:11 Zosyn 3.375 Gm/D5w 50ml Pm IVPB Infused Q6HR MILADYS Infusion Dextrose/Sodium Chloride 1,000 mls @ 75 mls/hr 09/08/21 07:30 09/08/21 07:50 Dextrose 5% Sodium Chloride 0.45% IV CONT 75 mls/hr .[id number] MILADYS Administration Metronidazole 1 applic 09/07/21 09:00 09/07/21 20:23 Metronidazole 0.75% 45 Gm Cream TOPICAL 1 applic Q12HR MILADYS Administration Montelukast Sodium 10 mg 09/07/21 21:00 09/07/21 20:23 Montelukast Sodium 10 Mg Tablet PO 10 mg HS MILADYS Administration Morphine Sulfate 2 mg 09/07/21 14:37 Morphine Sulfate (*Crx)
[2021-09-08] MEDS: amLODIPine BESYLATE 5 MG TABLET PO (09:00)
[2021-09-08] MEDS: FLUTICASONE PROPIONATE 0.05% NA SPR 16 GM BTL (*BKC) 2 SPRAY NASAL (09:00)
[2021-09-08] MEDS: AZELASTINE HCL NASAL 0.1% 137 MCG/SPR 30 ML BTL 2 SPRAY NASAL (09:01)
--- NOTE | 2021-09-08 13:39 | PC.NURSE ---
To GI Lab per wheelchair, IV saline locked.
--- NOTE | 2021-09-08 13:42 | PM.IMPN ---
Progress Note: A&P Assessment and Plan (1) Acute alcoholic pancreatitis: Code(s): K85.20 - Alcohol induced acute pancreatitis without necrosis or infection Status: Deleted (2) Alcohol abuse: Code(s): F10.10 - Alcohol abuse, uncomplicated Status: Chronic (3) Hyperlipidemia: Code(s): E78.5 - Hyperlipidemia, unspecified Status: Chronic (4) Hypertension: Code(s): I10 - Essential (primary) hypertension Status: Chronic (5) Acute cholecystitis: Code(s): K81.0 - Acute cholecystitis Status: Ruled-out Additional Plan # Acute pancreatitis likely as a result of biliary sludge versus alcohol-induced. Continue IV fluids but will decrease the rate from 150-75 cc/hour and change the fluid from normal saline to 5 normal saline. MRCP showing biliary sludge protruding from the cystic duct into the common bile duct but no stone in the distal common bile duct. GI consult recommendations appreciated. He is scheduled to have ERCP today. Diet as per GI service after ERCP is performed. Surgery service recommendations appreciated. He will need to have outpatient laparoscopic cholecystectomy. Surgery office will contact him after his discharge in few weeks to schedule the surgery. Serum lipase and rest of the LFTs trending down. Will continue to monitor. Continue pain medication with morphine but may be transitioned to oxycodone in the a.m. if he continues to do well with less pain. Continue to deescalate based on his pain control and other symptoms. # acute cholecystitis IV Zosyn NPO IV fluids IV analgesics IV emetics. ERCP planned for today per gastroenterology service recommendations. Surgery consult recommendations appreciated. He will likely need cholecystectomy at some point once recovers from this acute event. # history of prostate cancer status post prostatectomy and radiation treatment currently on androgen deprivation therapy # alcohol abuse advised to cut back and stop it altogether. Continue to monitor him for any alcohol withdrawal sign. Thiamine and folate. CIWA protocol if he starts exhibiting signs for alcohol withdrawal. # hypertension continue amlodipine. # hyperlipidemia . Will hold Crestor because of acute pancreatitis and hepatitis. It will be resumed at the time of discharge once LFTs improved to baseline. # chronic allergies # DVT prophylaxis SCD # full code status Subjective Date/time seen: 09/08/21 13:42 He is feeling much improved today. He denied have any significant abdominal pain though he is still feeling tender in the right upper quadrant. He denied have any nausea and vomiting. He is scheduled to have ERCP today. I will decrease fluid rate and change fluid to D5 half-normal saline. Rate of the fluid administration will be decreased from 150-75. Lipase and rest of the LFTs trending down. Review of Systems Review of Systems: All systems reviewed & are unremarkable except as noted in HPI and below Exam Narrative: GENERAL: Awake, alert, conversant NECK: Supple. CHEST: No respiratory distress, breathing even and non labored HEART: Regular rate, sinus rhythm ABDOMEN:Non distended, non tender on exam, no epigastric or RUQ tenderness EXTREMITIES: No edema NEURO:No focal deficits. Alert and oriented x3 Objective Data Vital Signs Vital Signs: Vital Signs - 24 hr 09/07/21 14:00 09/07/21 19:46 09/08/21 04:42 Temperature 37.3 C 36.5 C 36.8 C Pulse Rate 72 74 80 Respiratory Rate 18 16 16 Blood Pressure 108/62 119/61 114/64 Pulse Oximetry 97 95 94 09/08/21 13:37 Temperature 36.1 C L Pulse Rate 72 Respiratory Rate 18 Blood Pressure 131/71 Pulse Oximetry 96 Intake/Output Intake/Output: Intake & Output 09/05/21 09/06/21 09/07/21 09/08/21 23:59 23:59 23:59 23:59 Intake Total 50 4010 1400 Output Total 1100 450 Balance 50 2910 950 Meds/Results Medications: Active Medications Generic Name Dose Route Start
[2021-09-08] MEDS: LACTATED RINGERS 1,000 ML 150 ML IV CONT (13:45)
--- NOTE | 2021-09-08 13:45 | WPDANESEPPF ---
Anes - Initial Pre Proc Eval Procedure: Operation Date: 09/08/21 14:00 Proposed Procedures p Endoscopic Retro Cholangiopancreatogram - Darrick Bourgeois MD Date/Time: 09/08/21 13:45 Surgeon: Oscar Salazar MD Pre Op Diagnosis: pancreatitis Patient Data Age: 70 Gender: M Height: 1.83 m Weight: 83 kg Last Vital Signs Temp 97 F L 09/08/21 13:37 Pulse 72 09/08/21 13:37 Resp 18 09/08/21 13:37 BP 131/71 09/08/21 13:37 Pulse Ox 96 09/08/21 13:37 Allergies Allergy/AdvReac Type Severity Reaction Status Date / Time codeine Allergy Mild Rash Verified 09/08/21 13:36 Home Medications Medication Instructions Recorded Confirmed Type amlodipine 5 mg PO DAILY 09/06/21 09/06/21 History azelastine 2 spray INTRANASAL DAILY 09/06/21 09/06/21 History fluticasone propionate 2 spray INTRANASAL DAILY 09/06/21 09/06/21 History losartan-hydrochlorothiazide 1 tablet PO DAILY 09/06/21 09/06/21 History metronidazole 1 applic TOPICAL BID 09/06/21 09/06/21 History montelukast 10 mg PO HS 09/06/21 09/06/21 History rosuvastatin 10 mg PO HS 09/06/21 09/06/21 History sertraline 100 mg PO HS 09/06/21 09/06/21 History zolpidem 10 mg PO HS 09/06/21 09/06/21 History Laboratory Tests 09/08/21 09/08/21 05:11 05:11 WBC 7.4 K/mm3 K/mm3 (4.5-10.0) RBC 3.61 M/mm3 L M/mm3 (4.6-6.20) Hgb 12.4 g/dL L g/dL (14.0-18.0) Hct 35.9 % L % (42.0-52.0) MCV 99.4 fl fl (80-100) MCH 34.3 pg H pg (26-34) MCHC 34.5 g/dl g/dl (32-36) RDW 13.0 % % (11.5-14.5) Plt Count 127 k/mm3 L k/mm3 (150-375) MPV 8.6 fl fl (7.4-10.4) Immature Gran % (Auto) 0.4 % % (0-0.5) Neut % (Auto) 86.2 % H % (45.5-73.1) Lymph % (Auto) 4.1 % L % (18.3-44.2) Larue % (Auto) 7.6 % % (2.6-8.5) Eos % (Auto) 1.4 % % (0-4.4) Baso % (Auto) 0.3 % % (0.2-1.2) Lymph # (Auto) 0.30 K/mm3 L K/mm3 (0.9-3.2) Larue # (Auto) 0.6 K/mm3 K/mm3 (0.1-0.6) Eos # (Auto) 0.1 K/mm3 K/mm3 (0-0.3) Baso # (Auto) 0.0 K/mm3 K/mm3 (0.0-0.1) Abs Immat Gran (auto) 0.03 K/mm3 K/mm3 (0.00-0.031) Absolute Neuts (auto) 6.4 K/mm3 K/mm3 (1.3-6.7) Absolute Nucleated RBC 0.0 K/mm3 K/mm3 (0.0-0.012) Nucleated RBC % 0.0 % % (0.0-0.2) Sodium 140 mmol/L mmol/L (137-145) Potassium 3.5 mmol/L mmol/L (3.4-5.0) Chloride 109 mmol/L H mmol/L (98-107) Carbon Dioxide 27 mmol/L mmol/L (22-30) Anion Gap 4 mmol/L L mmol/L (8-16) BUN 15 mg/dL mg/dL (9-20) Creatinine 1.00 mg/dL mg/dL (0.7-1.3) Estim Creat Clear Calc 65 ml/min ml/min Estimated GFR > 60 (59 - ) Glucose 96 mg/dL mg/dL (65-110) Calcium 8.7 mg/dL mg/dL (8.4-10.2) Total Bilirubin 5.2 mg/dL H mg/dL (0.2-1.3) AST 225 U/L H U/L (17-59) ALT 453 U/L H U/L (4-50) Alkaline Phosphatase 158 U/L H U/L (38-126) Total Protein 6.0 g/dL L g/dL (6.3-8.2) Albumin 3.3 g/dL L g/dL (3.5-5.1) Lipase 3479 U/L H U/L (23-300) Patient hx anesthesia problems: none Family hx anesthesia problems: none Results Review: All pre-operative results and documents have been reviewed as part of the pre-operative evaluation. [facility] Past Medical History Medical History (Updated 09/08/21 @ 09:01 by Cabrera López MD) Elevated liver enzymes History of prostate cancer History of radiation therapy Hyperlipidemia Hypertension Surgical History Surgical History History of radical prostatectomy History of vasectomy Family History Family History Other No pertinent family history Social History Social History Social History: The patient lives
[2021-09-08] MEDS: SERTRALINE HCL 50 MG TABLET 100 MG PO (20:18)
[2021-09-08] MEDS: ZOLPIDEM TARTRATE (*CRX) 5 MG TABLET 10 MG PO (20:18)
[2021-09-08] MEDS: MONTELUKAST SODIUM 10 MG TABLET PO (20:18)
[2021-09-09 05:44] LABS: Hematocrit 33.6 % (42.0-52.0); Hemoglobin 11.5 g/dL (14.0-18.0); Mean Corpuscular HGB Conc 34.2 g/dl (32-36); Mean Corpuscular Hemoglobin 34.3 pg (26-34); Mean Corpuscular Volume 100.3 fl (80-100); Platelet Count Result 130 k/mm3 (150-375); Red Blood Count 3.35 M/mm3 (4.6-6.20); Red Cell Distribution Width 12.7 % (11.5-14.5); White Blood Count 5.2 K/mm3 (4.5-10.0)
[2021-09-09 05:58] LABS: Alanine Aminotransferase 280 U/L (4-50); Albumin Level 3.1 g/dL (3.5-5.1); Alkaline Phosphatase 152 U/L (38-126); Anion Gap 4 mmol/L (8-16); Aspartate Amino Transferase 78 U/L (17-59); Bilirubin,Total 2.2 mg/dL (0.2-1.3); Blood Urea Nitrogen 10 mg/dL (9-20); Calcium 8.7 mg/dL (8.4-10.2); Carbon Dioxide 26 mmol/L (22-30); Chloride 110 mmol/L (98-107); Estimated CRCL calculation 71 ml/min; Estimated Glomerular Filt Rate > 60; Glucose 136 mg/dL (65-110); Lipase 952 U/L (23-300); Magnesium 2.4 mg/dL (1.6-2.3); Potassium 3.2 mmol/L (3.4-5.0); Sodium 140 mmol/L (137-145)
[2021-09-09 06:00] VITALS: BP 115/60; PULSE 70; RESP 18; TEMP 36.6; O2SAT 96
[2021-09-09] MEDS: DEXTROSE 5%/0.45% SOD CHL 1,000 ML 75 ML IV CONT ×2 (06:04→19:21)
[2021-09-09] MEDS: FLUTICASONE PROPIONATE 0.05% NA SPR 16 GM BTL (*BKC) 2 SPRAY NASAL (08:06)
[2021-09-09] MEDS: THIAMINE HCL 100 MG TABLET PO (08:06)
[2021-09-09] MEDS: amLODIPine BESYLATE 5 MG TABLET PO (08:06)
[2021-09-09] MEDS: FOLIC ACID 1 MG TABLET PO (08:06)
[2021-09-09] MEDS: AZELASTINE HCL NASAL 0.1% 137 MCG/SPR 30 ML BTL 2 SPRAY NASAL (08:07)
[2021-09-09] MEDS: PANTOPRAZOLE SODIUM IV 40 MG VIAL IV PUSH (08:07)
--- NOTE | 2021-09-09 09:02 | PM.IMPN ---
Progress Note: A&P Assessment and Plan (1) Acute alcoholic pancreatitis: Code(s): K85.20 - Alcohol induced acute pancreatitis without necrosis or infection Status: Deleted Assessment and Plan: Improved Tolerating clear liquid diet Advanced diet as tolerated (2) Alcohol abuse: Code(s): F10.10 - Alcohol abuse, uncomplicated Status: Chronic Assessment and Plan: Patient has been counseled about alcohol intake cessation (3) Hyperlipidemia: Code(s): E78.5 - Hyperlipidemia, unspecified Status: Chronic Assessment and Plan: Follow-up in outpatient setting Stable (4) Hypertension: Code(s): I10 - Essential (primary) hypertension Status: Chronic Assessment and Plan: Continue amlodipine Continue to monitor (5) Acute cholecystitis: Code(s): K81.0 - Acute cholecystitis Status: Ruled-out Assessment and Plan: Continue Zosyn Additional Plan # Acute pancreatitis likely as a result of biliary sludge versus alcohol-induced. Continue IV fluids but will decrease the rate from 150-75 cc/hour and change the fluid from normal saline to 5 normal saline. MRCP showing biliary sludge protruding from the cystic duct into the common bile duct but no stone in the distal common bile duct. GI consult recommendations appreciated. He is scheduled to have ERCP today. Diet as per GI service after ERCP is performed. Surgery service recommendations appreciated. He will need to have outpatient laparoscopic cholecystectomy. Surgery office will contact him after his discharge in few weeks to schedule the surgery. Serum lipase and rest of the LFTs trending down. Will continue to monitor. Continue pain medication with morphine but may be transitioned to oxycodone in the a.m. if he continues to do well with less pain. Continue to deescalate based on his pain control and other symptoms. # acute cholecystitis IV Zosyn NPO IV fluids IV analgesics IV emetics. Status post ERCP by gastroenterology service . Surgery consult recommendations appreciated. He will likely need cholecystectomy at some point once recovers from this acute event. # history of prostate cancer status post prostatectomy and radiation treatment currently on androgen deprivation therapy # alcohol abuse advised to cut back and stop it altogether. Continue to monitor him for any alcohol withdrawal sign. Thiamine and folate. CIWA protocol if he starts exhibiting signs for alcohol withdrawal. # hypertension continue amlodipine. # hyperlipidemia . Will hold Crestor because of acute pancreatitis and hepatitis. It will be resumed at the time of discharge once LFTs improved to baseline. # chronic allergies # DVT prophylaxis SCD # full code status Subjective Date/time seen: 09/09/21 09:02 Interval history: S/p ercp with sphincterotomy and removal of sludge with pus (no stones, no filling defects, no strictures). He is doing much better today, pain is almost gone. Review of Systems Review of Systems: Patient states that he is feeling very well. All systems reviewed & are unremarkable except as noted in HPI and below Constitutional: Constitutional: Denies chills, Denies fatigue, Denies fever(s), Denies malaise and Denies weakness Eyes: Eyes: Denies change in vision ENT: Denies dysphagia, Denies nasal congestion, Denies nasal discharge, Denies nasal obstruction and Denies odynophagia Cardiovascular: Cardiovascular: Denies irregular heart rhythm, Denies radiating jaw, neck or arm pain, Denies palpitations, Denies dyspnea on exertion and Denies orthopnea Respiratory: Respiratory: Denies change in phlegm color, Denies cough, Denies excessive phlegm production and Denies dyspnea Gastrointestinal: Gastrointestinal: Denies abdominal pain, Denies nausea and Denies vomiting Comments: Tolerating liquids Genitourinary: Genitourinary: Reports no additional male genitourinary complaints Musculoskeletal: Musc
--- NOTE | 2021-09-09 12:18 | PM.PNGS ---
Progress Note: A&P Assessment and Plan (1) Acute biliary pancreatitis without infection or necrosis: Code(s): K85.10 - Biliary acute pancreatitis without necrosis or infection Status: Acute Assessment and Plan: improving --- Patient had successful ERCP yesterday. Postprocedure diet per Dr. Lake. From my perspective, patient may be discharged this weekend. I discussed the procedure of laparoscopic cholecystectomy with the patient. The procedure the risks the benefits, the usual recovery and the fact that it is done as an outpatient were all discussed. He has had laparoscopic surgery for prostatectomy. All questions were answered. He agrees to proceed. This can be done electively as an outpatient. Our office will call him to schedule should he be discharged this weekend. Additional Plan I have discussed the patient's case and plan of care with Dr. Lake. --- Patient probably staying another day for further antibiotics as there was some pus seen within the common bile duct. Will ask nurses/ dietitian to provide patient with a low-fat diet to follow when he goes home. Subjective Subjective Date/Time Seen: 09/09/21 12:18 Post Op day: 1 ( status post ERCP with sphincterotomy) Patient reports: no new complaints and feels better Interval history: patient states he tolerating clear liquids well this morning and his abdominal pain has cleared. He had a bowel movement this morning. Review of Systems Review of Systems: All systems reviewed & are unremarkable except as noted in HPI and below Constitutional: Constitutional: Reports as per HPI, Denies chills, Denies fever(s) and Denies headache(s) Cardiovascular: Cardiovascular: Denies chest pain Respiratory: Respiratory: Reports no additional respiratory complaints, Denies cough and Denies dyspnea Gastrointestinal: Gastrointestinal: Reports as per HPI and Denies nausea Musculoskeletal: Musculoskeletal: Denies numbness and Denies tingling Integumentary/Breasts: Skin/Breast: Denies jaundice Psychiatric: Psychiatric: Denies anxiety, Denies confusion, Reports depression (has been on sertraline since his 11 yrs ago), Reports memory loss (since starting ADT) and Reports panic attacks (x 3 since starting ADT) Exam Const: General: comfortable, no acute distress, alert and awake; No confusion Nutritional Appearance: average body habitus Orientation/consciousness: patient oriented x3 and No confusion HENMT: Head: normocephalic and atraumatic Ears: hearing grossly normal bilaterally Mouth: Yes moist mucous membranes Eyes: General: appearance normal, both eyes and all related structures Sclera: sclerae normal Pupils: Equal, round and reactive pupils present EOM: EOMs intact bilaterally Neck: Neck: normal visual inspection and full ROM Resp: Effort & Inspection: no respiratory distress Auscultation: clear to auscultation bilaterally Cardio: Rate: regular rate Rhythm: regular rhythm Heart sounds: S1 normal heart sound present and S2 normal heart sound present GI: Inspection: normal to inspection, non-distended, scaphoid, scar (few small trochar scars) and no visible herniation Auscultation: Hypoactive bowel sounds present Rectal Exam: deferred Neuro: General: patient oriented x3, moves all extremities, no focal motor deficits and No confusion Cranial nerves: Yes CN's II-XII intact bilaterally and Yes Equal, round and reactive pupils present Speech: normal speech Motor exam (neuro): 5/5 motor strength present throughout Extrem: General: normal to inspection, no clubbing, cyanosis or edema, no calf tenderness and no edema Psych: Mental Status: mental status grossly normal Affect: normal affect Attitude: cooperative Insight: Good insight present (Psych) Judgement: Good judgement present (Psych) Objective Data Vital Signs Vital Signs: Vital Signs - 24 hr 09/08/21 13:37 09/08/21 15:27 09/08/21 15:37 Temperature 36.1 C L 36.8 C Pulse
--- NOTE | 2021-09-09 13:15 | WPDGIPROGNO ---
Progress Note: A&P Assessment and Plan (1) Cholecystitis with cholangitis: Code(s): K81.9 - Cholecystitis, unspecified; K83.09 - Other cholangitis Status: Acute Assessment and Plan: treated with ercp and better, liver enzymes trending down and clinically much better continue with iv antibiotics surgery on board- will need lap blake, timing by surgery (2) Acute biliary pancreatitis without infection or necrosis: Code(s): K85.10 - Biliary acute pancreatitis without necrosis or infection Status: Acute Assessment and Plan: will advance diet today (3) Elevated liver enzymes: Code(s): R74.8 - Abnormal levels of other serum enzymes Status: Acute Assessment and Plan: continue to monitor (4) Biliary sludge: Code(s): K83.8 - Other specified diseases of biliary tract Status: Acute (5) RUQ pain: Code(s): R10.11 - Right upper quadrant pain Status: Acute Assessment and Plan: almost gone Subjective Date/time seen: 09/09/21 13:15 Interval history: ercp yesterday with sphincterotomy and removal of sludge with pus (no stones, no filling defects, no strictures). He is doing much better today, pain is almost gone. Review of Systems Review of Systems: All systems reviewed & are unremarkable except as noted in HPI and below Exam Const: General: comfortable and no acute distress HENMT: General nose exam: Normal nares present Eyes: General: appearance normal, both eyes and all related structures Neck: Neck: no JVD Resp: Auscultation: clear to auscultation bilaterally Cardio: Rate: regular rate Rhythm: regular rhythm GI: Inspection: non-distended GI Palp: Yes Soft to palpation and No Guarding due to palpation present (GI) Auscultation: normal bowel sounds Skin: General skin exam: normal color Neuro: Speech: normal speech Motor exam (neuro): Normal motor muscle tone present throughout Extrem: General: normal to inspection Psych: Mental Status: mental status grossly normal Objective Data Vital Signs Vital Signs: Vital Signs - 24 hr 09/08/21 13:37 09/08/21 15:27 09/08/21 15:37 Temperature 97 F L 98.2 F Pulse Rate 72 67 69 Respiratory Rate 18 19 20 Blood Pressure 131/71 112/65 127/76 Pulse Oximetry 96 100 100 09/08/21 15:47 09/08/21 15:57 09/08/21 16:07 Temperature Pulse Rate 69 68 69 Respiratory Rate 17 19 16 Blood Pressure 138/78 142/78 H 142/83 H Pulse Oximetry 100 97 98 09/08/21 16:17 09/08/21 16:40 09/08/21 22:00 Temperature 97.6 F 98.7 F Pulse Rate 68 73 78 Respiratory Rate 19 18 18 Blood Pressure 143/78 H 141/67 H 110/53 L Pulse Oximetry 98 97 96 09/09/21 06:00 Temperature 97.8 F Pulse Rate 70 Respiratory Rate 18 Blood Pressure 115/60 Pulse Oximetry 96 Intake/Output Intake/Output: Intake & Output 09/06/21 09/07/21 09/08/21 09/09/21 23:59 23:59 23:59 23:59 Intake Total 50 4010 2000 1960 Output Total 1100 1150 2200 Balance 50 2910 850 -240 Meds/Results Medications: Active Medications Generic Name Dose Route Start Last Admin Trade Name Freq PRN Reason Stop Dose Admin Amlodipine Besylate 5 mg 09/07/21 09:00 09/09/21 08:06 Amlodipine Besylate 5 Mg Tablet PO 5 mg DAILY MILADYS Administration Azelastine HCl 2 spray 09/07/21 09:00 09/09/21 08:07 Azelastine Hcl Nasal 0.1% 137 Mcg/Spr 30 Ml Btl NASAL 2 spray DAILY MILADYS Administration Fluticasone Propionate 2 spray 09/07/21 09:00 09/09/21 08:06 Fluticasone Propionate 0.05% Na Spr 16 Gm Btl (*Bkc) NASAL 2 spray DAILY MILADYS Administration Folic Acid 1 mg 09/09/21 09:00 09/09/21 08:06 Folic Acid 1 Mg Tablet PO 1 mg DAILY MILADYS Administration Piperacillin/Tazobactam/Dextrose 3.375 gm in 50 mls @ 100 mls/hr 09/07/21 07:25 09/09/21 12:16 Zosyn 3.375 Gm/D5w 50ml Pm IVPB Infused Q6HR MILADYS Infusion Dextrose/Sodium Chloride 1,000 mls @ 75 mls/hr 09/08/21 07:30 09/09/21 06:04 Dextrose 5%
[2021-09-09 14:00] VITALS: BP 127/68; PULSE 73; RESP 18; TEMP 36.8; O2SAT 97
--- NOTE | 2021-09-09 15:06 | WPDANESPN ---
Anes - Prog Note Post-Op Date/Time: 09/09/21 15:06 Cardiovascular status: normal Respiratory status: normal Airway patency: baseline Mental status: baseline Post-Op hydration status: normal Vital Signs: Last Vital Signs Temp 36.6 C 09/09/21 06:00 Pulse 70 09/09/21 06:00 Resp 18 09/09/21 06:00 BP 115/60 09/09/21 06:00 Pulse Ox 96 09/09/21 06:00 Pain Score (VAS): 0 I/O: Intake & Output 09/08/21 09/09/21 09/09/21 23:59 07:59 15:59 Intake Total 350 1400 560 Output Total 152 479 7077 Balance -350 500 -740 Laboratory Tests 09/09/21 04:41 09/09/21 04:41 09/09/21 09/09/21 04:41 04:41 WBC 5.2 RBC 3.35 L Hgb 11.5 L Hct 33.6 L MCV 100.3 H MCH 34.3 H MCHC 34.2 RDW 12.7 Plt Count 130 L MPV 9.0 Sodium 140 Potassium 3.2 L Chloride 110 H Carbon Dioxide 26 Anion Gap 4 L BUN 10 D Creatinine 0.90 Estim Creat Clear Calc 71 Estimated GFR > 60 Glucose 136 H Calcium 8.7 Magnesium 2.4 H Total Bilirubin 2.2 H AST 78 H ALT 280 H Alkaline Phosphatase 152 H Total Protein 6.0 L Albumin 3.1 L Lipase 952 H Post-procedural complaints: none Patient Feedback: Patient satisfied with anesthetic care.
[2021-09-09] MEDS: ZOLPIDEM TARTRATE (*CRX) 5 MG TABLET 10 MG PO (20:52)
[2021-09-09] MEDS: MONTELUKAST SODIUM 10 MG TABLET PO (20:52)
[2021-09-09] MEDS: SERTRALINE HCL 50 MG TABLET 100 MG PO (20:53)
[2021-09-09 22:00] VITALS: BP 141/76; PULSE 64; RESP 18; TEMP 36.7; O2SAT 96
[2021-09-10 05:22] LABS: Hematocrit 33.2 % (42.0-52.0); Hemoglobin 11.4 g/dL (14.0-18.0); Mean Corpuscular HGB Conc 34.3 g/dl (32-36); Mean Corpuscular Hemoglobin 34.7 pg (26-34); Mean Corpuscular Volume 100.9 fl (80-100); Mean Platelet Volume 8.9 fl (7.4-10.4); Platelet Count Result 139 k/mm3 (150-375); Red Blood Count 3.29 M/mm3 (4.6-6.20)
[2021-09-10 05:33] LABS: Alanine Aminotransferase 205 U/L (4-50); Albumin Level 3.2 g/dL (3.5-5.1); Alkaline Phosphatase 142 U/L (38-126); Anion Gap 7 mmol/L (8-16); Aspartate Amino Transferase 40 U/L (17-59); Blood Urea Nitrogen 10 mg/dL (9-20); Calcium 8.7 mg/dL (8.4-10.2); Carbon Dioxide 25 mmol/L (22-30); Chloride 111 mmol/L (98-107); Estimated CRCL calculation 71 ml/min; Estimated Glomerular Filt Rate > 60; Glucose 109 mg/dL (65-110); Potassium 3.2 mmol/L (3.4-5.0); Sodium 143 mmol/L (137-145)
[2021-09-10 06:00] VITALS: BP 129/64; PULSE 65; RESP 18; TEMP 36.1; O2SAT 96
--- NOTE | 2021-09-10 07:44 | WPDGIPROGNO ---
Progress Note: A&P Assessment and Plan (1) Cholecystitis with cholangitis: Code(s): K81.9 - Cholecystitis, unspecified; K83.09 - Other cholangitis Status: Acute Assessment and Plan: treated with ercp and today normal bilirubin, transaminases trending down and clinically much better without any more pain he can go home with 7 more days of oral augmentin, low-fat diet and will need follow-up with surgery this coming week to discuss timing of cholecystectomy (2) Acute biliary pancreatitis without infection or necrosis: Code(s): K85.10 - Biliary acute pancreatitis without necrosis or infection Status: Acute Assessment and Plan: tolerating diet, liver enzymes better (3) Elevated liver enzymes: Code(s): R74.8 - Abnormal levels of other serum enzymes Status: Acute Assessment and Plan: repeat as outpatient (4) Biliary sludge: Code(s): K83.8 - Other specified diseases of biliary tract Status: Acute Assessment and Plan: treated with ercp (5) RUQ pain: Code(s): R10.11 - Right upper quadrant pain Status: Acute Assessment and Plan: almost gone Subjective Date/time seen: 09/10/21 07:44 Interval history: no more pain and tolerating diet Review of Systems Review of Systems: All systems reviewed & are unremarkable except as noted in HPI and below Exam Const: General: comfortable and no acute distress HENMT: General nose exam: Normal nares present Eyes: General: appearance normal, both eyes and all related structures Neck: Neck: no JVD Resp: Auscultation: clear to auscultation bilaterally Cardio: Rate: regular rate Rhythm: regular rhythm GI: Inspection: non-distended GI Palp: Yes Soft to palpation, No Tenderness to palpation present (GI) and No Guarding due to palpation present (GI) Auscultation: normal bowel sounds Skin: General skin exam: normal color Neuro: General: gait normal Speech: normal speech Extrem: General: normal to inspection Psych: Mental Status: mental status grossly normal Objective Data Vital Signs Vital Signs: Vital Signs - 24 hr 09/09/21 14:00 09/09/21 22:00 09/10/21 06:00 Temperature 98.3 F 98.1 F 97.0 F L Pulse Rate 73 64 65 Respiratory Rate 18 18 18 Blood Pressure 127/68 141/76 H 129/64 Pulse Oximetry 97 96 96 Intake/Output Intake/Output: Intake & Output 09/07/21 09/08/21 09/09/21 09/10/21 23:59 23:59 23:59 23:59 Intake Total 4010 2000 3490 800 Output Total 1100 1150 2200 1100 Balance 2910 850 1290 -300 Meds/Results Medications: Active Medications Generic Name Dose Route Start Last Admin Trade Name Dongq PRN Reason Stop Dose Admin Amlodipine Besylate 5 mg 09/07/21 09:00 09/09/21 08:06 Amlodipine Besylate 5 Mg Tablet PO 5 mg DAILY MILADYS Administration Azelastine HCl 2 spray 09/07/21 09:00 09/09/21 08:07 Azelastine Hcl Nasal 0.1% 137 Mcg/Spr 30 Ml Btl NASAL 2 spray DAILY MILADYS Administration Fluticasone Propionate 2 spray 09/07/21 09:00 09/09/21 08:06 Fluticasone Propionate 0.05% Na Spr 16 Gm Btl (*Bkc) NASAL 2 spray DAILY MILADYS Administration Folic Acid 1 mg 09/09/21 09:00 09/09/21 08:06 Folic Acid 1 Mg Tablet PO 1 mg DAILY MILADYS Administration Piperacillin/Tazobactam/Dextrose 3.375 gm in 50 mls @ 100 mls/hr 09/07/21 07:25 09/10/21 05:58 Zosyn 3.375 Gm/D5w 50ml Pm IVPB Infused Q6HR MILADYS Infusion Dextrose/Sodium Chloride 1,000 mls @ 75 mls/hr 09/08/21 07:30 09/09/21 19:21 Dextrose 5% Sodium Chloride 0.45% IV CONT 75 mls/hr .[id number] MILADYS Administration Metronidazole 1 applic 09/07/21 09:00 09/09/21 20:52 Metronidazole 0.75% 45 Gm Cream TOPICAL 1 applic Q12HR MILADYS Administration Montelukast Sodium 10 mg 09/07/21 21:00 09/09/21 20:52 Montelukast Sodium 10 Mg Tablet PO 10 mg HS MILADYS Administration Morphine Sulfate 2 mg 09/07/21 14:37 Morphine Sulfate (*Crx) 2 Mg/Ml Inj IV PUSH Q4
--- NOTE | 2021-09-10 08:02 | PM.DS ---
DS: Admitting Diagnosis Discharge Date 09/10/2021 Admitting Diagnosis (1) Acute alcoholic pancreatitis: Code(s): K85.20 - Alcohol induced acute pancreatitis without necrosis or infection Status: Acute (2) Alcohol abuse: Code(s): F10.10 - Alcohol abuse, uncomplicated Status: Acute (3) Hyperlipidemia: Code(s): E78.5 - Hyperlipidemia, unspecified Status: Acute (4) Hypertension: Code(s): I10 - Essential (primary) hypertension Status: Acute (5) Acute cholecystitis: Code(s): K81.0 - Acute cholecystitis Status: Acute Additional Plan # Acute pancreatitis alcohol versus gallstone disease. though no gallstones been identified favor this diagnosis as an alcohol. Will get MRCP to further evaluate. He does have elevated bilirubin consult GI # acute cholecystitis IV Zosyn NPO IV fluids IV analgesics IV emetics general surgery on consult # history of prostate cancer status post prostatectomy and radiation treatment currently on androgen deprivation therapy # alcohol abuse advised to cut back # hypertension # hyperlipidemia # chronic allergies # DVT prophylaxis SCD # full code status DS: Discharge Diagnosis Discharge Diagnosis (1) Cholecystitis with cholangitis: Code(s): K81.9 - Cholecystitis, unspecified; K83.09 - Other cholangitis Status: Acute Assessment and Plan: treated with ercp and today normal bilirubin, transaminases trending down and clinically much better without any more pain he can go home with 7 more days of oral augmentin, low-fat diet and will need follow-up with surgery this coming week to discuss timing of cholecystectomy (2) Acute biliary pancreatitis without infection or necrosis: Code(s): K85.10 - Biliary acute pancreatitis without necrosis or infection Status: Acute Assessment and Plan: tolerating diet, liver enzymes better (3) Elevated liver enzymes: Code(s): R74.8 - Abnormal levels of other serum enzymes Status: Acute Assessment and Plan: repeat as outpatient (4) Biliary sludge: Code(s): K83.8 - Other specified diseases of biliary tract Status: Acute Assessment and Plan: treated with ercp (5) RUQ pain: Code(s): R10.11 - Right upper quadrant pain Status: Acute Assessment and Plan: almost gone DS: Summary Hospital Course Reason for hospitalization: Abdominal pain. Hospital Course: Abdominal pain Narrative: The patient is a 70 yo male with a history of prostate cancer, HTN, HLD, presents to the ER with upper abdominal pain that awakened him from sleep earlier this morning. The pain is in the right upper quadrant and epigastric area severe in nature 7 to 8/10 in intensity associated with nausea and dry his but no vomiting. He denies any fever or chills no diarrhea or constipation. He never had similar kind of pain in the past. He does endorse alcohol use on a regular basis and particularly drinks wine and he did drink wine earlier that night. In the ED evaluation he was noted to have mild leukocytosis of 13,000 along with elevated lipase at 1:24 p.m. he did have bilirubin elevation at 2 with mild AST of 63 however alkaline phosphatase and ALT was within normal limit. He was evaluated with a right upper quadrant ultrasound which was unremarkable per Radiology review. Abdominal pelvis CT scan was done which showed features of acute cholecystitis. He was admitted for further evaluation and management. Patient was found to have acute pancreatitis and acute cholecystitis. He underwent MRCP and ERCP with a sphincterotomy. Consults obtained: GI and General surgery Patient had an uneventful hospital will complete a course of amoxicillin for another 7 days. Will be seen in the outpatient surgery office for cholecystectomy. Procedures: MRCP and ERCP # Acute pancreatitis likely as a result of biliary sludge versus alcohol-induced. # acute cholecystitis IV Z
[2021-09-10] MEDS: FLUTICASONE PROPIONATE 0.05% NA SPR 16 GM BTL (*BKC) 2 SPRAY NASAL (08:32)
[2021-09-10] MEDS: AZELASTINE HCL NASAL 0.1% 137 MCG/SPR 30 ML BTL 2 SPRAY NASAL (08:32)
[2021-09-10] MEDS: POTASSIUM CHLORIDE 20 MEQ PACKET (FOR LIQUID) 40 MEQ PO (08:32)
[2021-09-10] MEDS: amLODIPine BESYLATE 5 MG TABLET PO (08:32)
[2021-09-10] MEDS: THIAMINE HCL 100 MG TABLET PO (08:32)
[2021-09-10] MEDS: FOLIC ACID 1 MG TABLET PO (08:32)
[2021-09-10] MEDS: PANTOPRAZOLE SODIUM IV 40 MG VIAL IV PUSH (08:32)
== END 2021-09-10 11:45 | disposition home or self-care (01) | DRG 439 ==
LOC: ANHED 19:54 → ANH2MED 09-07 11:28
PROVIDERS: Internal Medicine Critical Care Medicine; Internal Medicine Gastroenterology; Admitting Provider Internal Medicine; Emergency Provider Emergency Medicine; PCP Internal Medicine; Visit Provider Internal Medicine
PROC: 0F7C8ZZ Dilation of Ampulla of Vater, Via Natural or Artificial Opening Endoscopic (ICD-10-PCS; CPT 43260; principal; 2021-09-08 14:00)
DX: K85.10 Biliary acute pancreatitis without necrosis or infection (principal); K83.09 Other cholangitis; K81.0 Acute cholecystitis; K85.20 Alcohol induced acute pancreatitis without necrosis or infection; K83.8 Other specified diseases of biliary tract; K29.80 Duodenitis without bleeding; F10.10 Alcohol abuse, uncomplicated; E78.5 Hyperlipidemia, unspecified; I10 Essential (primary) hypertension; Z85.46 Personal history of malignant neoplasm of prostate; Z87.891 Personal history of nicotine dependence
CPT/HCPCS: 36415; 74177; 74183; 74329; 76376; 76705; 80053; 81001; 83605; 83690; 83735; 85025; 85027; 87040; 93005; 96365; 99285; A9270; A9577; C1726; C9113; J0330; J2270; J2405; J2543; J2704; J3480; J7030; J7120; Q9967

== ENCOUNTER 2021-09-25 13:24 | Outpatient (CLI) | payer MEDICARE, SELFPAY ==
[2021-09-25 14:03] LABS: Alanine Aminotransferase 30 U/L (4-50); Albumin Level 4.6 g/dL (3.5-5.1); Alkaline Phosphatase 106 U/L (38-126); Amylase 105 U/L (30-110); Aspartate Amino Transferase 30 U/L (17-59); Bilirubin,Total 1.3 mg/dL (0.2-1.3); Lipase 259 U/L (23-300)
[2021-09-25 14:04] LABS: Anion Gap 6 mmol/L (8-16); Blood Urea Nitrogen 19 mg/dL (9-20); Calcium 9.8 mg/dL (8.4-10.2); Carbon Dioxide 35 mmol/L (22-30); Chloride 102 mmol/L (98-107); Estimated Glomerular Filt Rate > 60; Glucose 127 mg/dL (65-110); Potassium 3.5 mmol/L (3.4-5.0); Sodium 143 mmol/L (137-145)
== END 2021-09-25 13:25 | disposition home or self-care (01) ==
PROVIDERS: Anesthesiology; PCP Internal Medicine; Visit Provider Surgery
DX: K81.9 Cholecystitis, unspecified (principal); K83.09 Other cholangitis; Z79.899 Other long term (current) drug therapy; Z01.818 Encounter for other preprocedural examination
CPT/HCPCS: 36415; 80048; 80076; 82150; 83690; 86850; 86900; 86901

== ENCOUNTER 2021-09-28 01:15 | Day surgery (SDC) | payer MEDICARE, SELFPAY ==
[2021-09-22 11:27] VITALS: BMI 24.0
--- NOTE | 2021-09-22 11:53 | PC.NURSE ---
Report to the Outpatient Waiting Room, entrance under the green pavilion located off [facility], at time _1100__ on date _09/28/21_. OR Time: _1PM__. - You and your visitor will be asked a series of questions to screen for COVID 19 for your protection. - A mask is required within the hospital. - Only one visitor is allowed at this time. Patient visitors will be guided where to wait when not with patient. Preoperative COVID Testing Requirements: No COVID Test needed if: (proof is required; if not received patient will have Rapid Test prior to entry) - Patient has received COVID Vaccine at least 14 days prior to procedure date or - Patient has positive COVID test result within last 90 days of surgery date. COVID Test needed if above criteria is not met If not COVID vaccinated a COVID test must be conducted within 72 hours of surgery and patient is asked to isolate self from time of testing until procedure. You will go to the [facility] for your COVID testing. The [facility] site is located at the corner of [address] from [facility]. You will only be called if COVID results are positive and your surgeon may reschedule your elective surgery date. Patients may have clear liquids (water, carbonated beverages, clear teas, apple juice) until 3 hours prior to surgery with a maximum of 20 ounces. - No food from midnight until time of surgery - Infants may have breast milk until 4 hours before surgery, formula 6 hours prior to surgery. - Children will be allowed to drink immediately following surgery. If applicable, please bring a bottle or sippy cup to assist with drinking. Juice, water, soda, and popsicles are readily available. For infants on formula, please bring formula the day of surgery. Pacifiers are allowed. Take the following medications with a SIP of water the morning of surgery: __AMLODIPINE, INHALER & TYLENOL IF NEEDED Medications to discontinue per physician ALL VITAMINS & SUPPLEMENTS Date to take last dose__09/24/21 Please no make-up, nail thai, hairspray, perfume, deodorant, or body powder the day of surgery. No jewelry (including any body piercings) or valuables the day of surgery, leave them at home. Please take a shower or bath the night before, or the morning of, surgery with an antibacterial soap. Wear comfortable, loose fitting clothing. Children are encouraged to wear pajamas. - Jewelry must be removed prior to entering the operating room. Rings and piercings that are not removed may be cut off. - The hospital will not accept responsibility for valuables. - Please leave all valuables, including medications, at home the day of surgery. If you are going home after surgery, a licensed grain combine driver must drive you home. - NO public transportation without another adult. - We recommend that an adult stay with you for 24 hours following discharge. - We also recommend that you do not drive, make important decision, drink alcoholic beverages, or take any drugs that were not prescribed by your health care provider for at least 24 hours after your discharge time. For Pediatric surgeries, we recommend two adults accompany the child home (only one inside the building at this time). Follow any additional instructions given to you from your surgeon. JONAH ERVIN AM OF SURGERY Telephone instructions given to __PT___and asked if any additional questions and then verbalized understanding. Patient advised to call surgeon office or pre surgery nurse liaison [phone] if any additional questions.
--- NOTE | 2021-09-26 15:47 | PM.SD2 ---
Same Day Admit/Disch: HPI History of Present Illness Chief complaint: Acute Cholecystitis Narrative: Rickey Weiss is a 70 year old male Who presented to [facility] on September [address] scan of the abdomen pelvis suggested cholecystitis and pancreatitis. There were no gallstones and on ultrasound of 09/06/2021 there were no gallstones noted. MRCP was done the next day 09/07/2021, and this did suggest sludge protruding into the common bile duct from the cystic duct and evidence of acute cholecystitis. The patient had an ERCP on September 08, 2021. This showed sludge in the common bile duct and also purulent fluid exit chested of of acute cholangitis. Sphincterotomy was done and balloon sweeps of the common bile duct were done. Eventually only clear bile was coming from the bile duct rather than the initial pus and sludge that was seen. Patient went on to recover uneventfully and has not had any further episodes of pancreatitis. He is taken to surgery now for laparoscopic cholecystectomy for acute biliary pancreatitis. [facility] Past Medical History Medical History Cholangitis Cholecystitis with cholangitis Elevated liver enzymes History of prostate cancer History of radiation therapy Hyperlipidemia Hypertension RUQ pain Surgical History Surgical History History of radical prostatectomy History of vasectomy Family History Family History Other No pertinent family history Social History Social History Social History: The patient lives in an apartment alone. He is . His 11 years ago from ovarian cancer. He has two children. Prior to being diagnosed with prostate cancer last year, he reports drinking about 250 bottles of wine per year and has since cut that in half. Now averaging 1/2 - 1 bottle of wine per day. His PCP is Durga Jamison through [facility]. Smoking status: Former smoker Tobacco type: pipe Second hand tobacco smoke exposure: No Additional smoking assessment comments: STATES QUIT 1975 Alcohol intake: former Drinks per week: 21 Alcohol use details: 3-4 BOTTLES WINE WEEKLY - LAST GLASS 09/06/21 Substance use: never Substance use type: does not use Living arrangements: alone Additional living arrangements comments: Moved into an apartment in June. Gender identity (if verbalized by the patient): Male Spiritual care concerns: No Same Day Admit/Disch: Med Pre-admit Medications Home Medications Medication Instructions Recorded Confirmed Type amlodipine 5 mg PO QAM 09/06/21 09/28/21 History azelastine 2 spray INTRANASAL BID 09/06/21 09/22/21 History fluticasone propionate 2 spray INTRANASAL HS 09/06/21 09/22/21 History losartan-hydrochlorothiazide 1 tablet PO QAM 09/06/21 09/22/21 History metronidazole 1 applic TOPICAL BID 09/06/21 09/22/21 History montelukast 10 mg PO HS 09/06/21 09/22/21 History rosuvastatin 10 mg PO HS 09/06/21 09/22/21 History sertraline 150 mg PO HS 09/06/21 09/22/21 History zolpidem 10 mg PO HS 09/06/21 09/22/21 History folic acid 1 mg PO DAILY #30 tablet 09/10/21 09/22/21 Rx thiamine HCl (vitamin B1) [Vitamin 100 mg PO QAM #30 tablet 09/10/21 09/22/21 Rx B-1] acetaminophen 1,000 mg PO QID PRN 09/22/21 09/28/21 History albuterol sulfate [ProAir HFA] 2 puff INHALATION QID PRN 09/22/21 09/22/21 History multivitamin 1 tablet PO DAILY 09/22/21 09/22/21 History potassium chloride 10 meq PO QAM 09/22/21 09/22/21 History ibuprofen 600 mg PO Q6H PRN #14 tablet 09/28/21 Rx oxycodone-acetaminophen [Percocet] 1 - 2 tablet PO Q6H PRN #10 tablet 09/28/21 Rx Exam Const: General: comfortable, no acute distress, alert and awake HENMT: Head: normocephalic and atraumatic Mouth: Yes Normal oral and palatal mucosa prese
[2021-09-28] VITALS (9 sets, daily range): BP systolic 121–147; BP diastolic 69–87; PULSE 52–76; RESP 12–16; TEMP 36.1–36.2; O2SAT 98–100
[2021-09-28] MEDS: LACTATED RINGERS 1,000 ML 30 ML IV CONT ×2 (11:40→15:08)
[2021-09-28] MEDS: KETOROLAC 15 MG/ML VIAL (*BKC) IV PUSH (11:42)
--- NOTE | 2021-09-28 11:51 | WPDANESEPPF ---
Anes - Initial Pre Proc Eval Procedure: Operation Date: 09/28/21 13:00 Proposed Procedures p Laparoscopic Cholecystectomy With Intraoperative Cholangiogram - Cabrera López MD Date/Time: 09/28/21 11:51 Surgeon: Cabrera López MD Pre Op Diagnosis: Acute Cholecystitis Patient Data Age: 70 Gender: M Height: 1.85 m Weight: 79.2 kg Allergies Allergy/AdvReac Type Severity Reaction Status Date / Time neomycin Allergy Rash Verified 09/28/21 11:13 polymyxin B Allergy Rash Verified 09/28/21 11:13 bacitracin AdvReac Rash Verified 09/27/21 10:00 [From Neosporin ([id number])] codeine AdvReac Confusion Verified 09/28/21 11:13 lisinopril AdvReac Cough Verified 09/28/21 11:13 Home Medications Medication Instructions Recorded Confirmed Type amlodipine 5 mg PO QAM 09/06/21 09/28/21 History azelastine 2 spray INTRANASAL BID 09/06/21 09/22/21 History fluticasone propionate 2 spray INTRANASAL HS 09/06/21 09/22/21 History losartan-hydrochlorothiazide 1 tablet PO QAM 09/06/21 09/22/21 History metronidazole 1 applic TOPICAL BID 09/06/21 09/22/21 History montelukast 10 mg PO HS 09/06/21 09/22/21 History rosuvastatin 10 mg PO HS 09/06/21 09/22/21 History sertraline 150 mg PO HS 09/06/21 09/22/21 History zolpidem 10 mg PO HS 09/06/21 09/22/21 History folic acid 1 mg PO DAILY #30 tablet 09/10/21 09/22/21 Rx thiamine HCl (vitamin B1) [Vitamin 100 mg PO QAM #30 tablet 09/10/21 09/22/21 Rx B-1] acetaminophen [Tylenol Ex Str 1,000 mg PO QID PRN 09/22/21 09/28/21 History Rapid Release] albuterol sulfate [ProAir HFA] 2 puff INHALATION QID PRN 09/22/21 09/22/21 History multivitamin [Multi-Vitamin] 1 tablet PO DAILY 09/22/21 09/22/21 History potassium chloride 10 meq PO QAM 09/22/21 09/22/21 History Patient hx anesthesia problems: none Family hx anesthesia problems: none Results Review: All pre-operative results and documents have been reviewed as part of the pre-operative evaluation. [facility] Past Medical History Medical History Cholangitis Cholecystitis with cholangitis Elevated liver enzymes History of prostate cancer History of radiation therapy Hyperlipidemia Hypertension RUQ pain Surgical History Surgical History History of radical prostatectomy History of vasectomy Family History Family History Other No pertinent family history Social History Social History Social History: The patient lives in an apartment alone. He is . His 11 years ago from ovarian cancer. He has two children. Prior to being diagnosed with prostate cancer last year, he reports drinking about 250 bottles of wine per year and has since cut that in half. Now averaging 1/2 - 1 bottle of wine per day. His PCP is Durga Jamison through [facility]. Smoking status: Former smoker Tobacco type: pipe Second hand tobacco smoke exposure: No Additional smoking assessment comments: STATES QUIT 1975 Alcohol intake: former Drinks per week: 21 Alcohol use details: 3-4 BOTTLES WINE WEEKLY - LAST GLASS 09/06/21 Substance use: never Substance use type: does not use Living arrangements: alone Additional living arrangements comments: Moved into an apartment in June. Gender identity (if verbalized by the patient): Male Spiritual care concerns: No Anes - Eval Final PreProcedure Day of Procedure 09/28/21 11:51 Patient weight: normal Heart: regular rate and rhythm Lungs: clear to auscultation Airway: Mallampati scale class II Neurological: alert and oriented Last oral intake: >/= 8 hours ASA classification: III Emergent: no Anesthetic plan: proceed Anesthesia type and monitoring: general ETT and standard monitoring Results Review: All pre-operative results and documents have been revi
--- NOTE | 2021-09-28 13:33 | WPDHPUPDATE1 ---
History and Physical Update Update Date/Time: 09/28/21 13:33 History and Physical has been reviewed, including an updated exam of the patient. There are NO changes in the patient's condition. Patient had negative ERCP and sphincterotomy during his hospital stay. Liver enzymes are normal preoperatively. We will not be doing a cholangiogram only laparoscopic cholecystectomy. Risks, benefits, and alternatives have been discussed and questions answered. Patient agrees to proceed with procedure.
[2021-09-28] MEDS: ceFAZolin 2 GM/D5W 50 ML 2 GM/50 ML BAG IVPB (13:41)
[2021-09-28] MEDS: BUPIVACAINE HCL 0.5% PF 30 ML VIAL INFILTRATE (14:20)
--- NOTE | 2021-09-28 15:29 | P.OP_ITS ---
Procedure Note - Detailed Date of Procedure 09/28/21 Pre-op Diagnosis Biliary pancreatitis, chronic cholecystitis Post-op Diagnosis same Procedure Performed Laparoscopic cholecystectomy Surgeon Cabrera López MD Histologic Technician Fabiola Restrepo [facility] Anesthesia general and local Indications Patient presented a few weeks ago with biliary pancreatitis. Imaging was negative for gallstones but his MRI suggested gallbladder sludge with evidence of sludge in the cystic and common duct. He underwent an ERCP and sphincterotomy. The common bile duct was swept and some sludge in grit was noted. Since then he has been fairly comfortable. He is taken to surgery now for biliary pancreatitis and chronic cholecystitis. Findings Chronic gallbladder inflammation, no biliary ductal dilatation, no liver abnormalities. No large stones were noted. Description of Procedure Patient was taken to surgery and induced into general anesthesia. The abdomen is prepped and draped. Trocars were placed in the usual fashion using 1% lidocaine with epinephrine. [employer] optical trocars were used. A 5 mm camera was used. The gallbladder was grasped and retracted anterosuperiorly. Adhesions of the omentum to the gallbladder were taken down. Cautery was used for hemostasis. Dissection was carried out in the cholecystohepatic triangle. The cystic duct and cystic artery were dissected out clearly. The gallbladder was dissected off the liver at its lower 3rd. Critical view was achieved. We securely clipped and divided the cystic duct and cystic artery. We then dissected the gallbladder free of its attachments to the liver. It was actually very chronically inflamed and attached to the liver with an obscured tissue plane between the gallbladder and the liver. Some entry into the gallbladder was made. Mucopurulent fluid was noted. No stones were noted. This was suctioned away. We continued dissecting the gallbladder free from the liver and entered some of the liver substance trying to stay out of the gallbladder. Eventually the gallbladder was freed completely. It was placed in an Endo-Catch bag and retrieved through the 10 11 epigastric trocar site. We then turned our attention to the gallbladder fossa. The raw liver surface at the fundic portion of the gallbladder fossa was cauterized. It was fairly hemostatic. I then used Surgiflo and applied this to the area. No evidence of any further bleeding and all was noted after that. We had irrigated and suctioned the right upper quadrant while achieving hemostasis. No evidence of bile leakage was noted. All looked quite good. We then evacuated CO2 and removed the trocar sleeves. The fascia was closed at the epigastric trocar site with an 0 Vicryl suture. The subQ was closed with 3-0 Vicryl suture. All skin wounds were closed with subcuticular 4-0 Monocryl skin suture. The wounds were dressed with Exofin surgical adhesive. The patient was awakened and taken to recovery in good condition. Sponge and needle counts were correct x2. Estimated Blood Loss -10 Drains No Packing No Pathology yes (Gallbladder) Complications No immediate complications Condition stable Disposition PACU
== END 2021-09-28 16:33 | disposition home or self-care (01) ==
PROVIDERS: PCP Internal Medicine; Visit Provider Surgery
PROC: 0FT44ZZ Resection of Gallbladder, Percutaneous Endoscopic Approach (ICD-10-PCS; CPT 47562; principal; 2021-09-28 13:00)
DX: K85.10 Biliary acute pancreatitis without necrosis or infection (principal); K81.1 Chronic cholecystitis; I10 Essential (primary) hypertension; E78.5 Hyperlipidemia, unspecified; Z85.46 Personal history of malignant neoplasm of prostate; Z92.3 Personal history of irradiation; Z87.891 Personal history of nicotine dependence
CPT/HCPCS: 47562; 88304; C1713; J0690; J1885; J2270; J2405; J2704; J7120